=== PATIENT | male | born 1975 | race Caucasian/White ===

== ENCOUNTER 2022-05-10 14:33 | Outpatient (CLI) | payer OTHER, SELFPAY ==
[2022-05-10 17:35] LABS: Chloride* 107 mmol/L (96-114); Sodium* 141 mmol/L (135-149)
[2022-05-10 17:38] LABS: Blood Urea Nitrogen* 16 mg/dL (5-24); Carbon Dioxide* 28 mmol/L (20-32); Cholesterol* 265 mg/dL (90-199); Creatinine* 0.7 mg/dL (0.5-1.5); Estimated Glomerular Filt Rate 116 ml/min
[2022-05-10 17:39] LABS: Calcium* 9.1 mg/dL (8.4-10.6); Glucose* 97 mg/dL (60-115); HDL Cholesterol* 73 mg/dL (>=40); LDL Cholesterol Calculated 156 mg/dL (<100); Triglycerides* 178 mg/dL (40-149)
== END 2022-05-10 14:34 | disposition home or self-care (01) ==
PROVIDERS: PCP Family Medicine; Visit Provider Family Medicine
DX: Z00.00 Encounter for general adult medical examination without abnormal findings (principal); Z80.0 Family history of malignant neoplasm of digestive organs; Z13.6 Encounter for screening for cardiovascular disorders
CPT/HCPCS: 80048; 80061